=== PATIENT | male | born 1955 | race Caucasian/White ===

== ENCOUNTER 2020-06-11 12:53 | Emergency (ER) | payer MEDICARE ==
[2020-06-11 13:12] VITALS: RESP 18
--- NOTE | 2020-06-11 13:36 | ED ---
General Adult HPI - General Chief complaint: Recheck/Abnormal Lab/Rx Stated complaint: peg tube Time Seen by Provider: 06/11/20 13:26 Source: patient, EMS, RN notes reviewed Mode of arrival: EMS Limitations: no limitations - History of Present Illness Initial comments: this a 65-year-old male presents emergency Department with chief complaint of blocked PEG tube. Patient has a history of cancer with metastasis has a PEG tube and trach. Patient was sent in from outside source for PEG tube replacement. No other complications or complaints - Related Data Allergies Allergy/AdvReac Type Severity Reaction Status Date / Time acetaminophen [From [place]] Allergy Unknown Verified 06/11/20 13:13 bee venom protein (honey bee) Allergy Unknown Verified 06/11/20 13:13 hydrocodone [From [place]] Allergy Unknown Verified 06/11/20 13:13 tramadol Allergy Unknown Verified 06/11/20 13:13 Review of Systems ROS Statement: Those systems with pertinent positive or pertinent negative responses have been documented in the HPI. ROS Other: All systems not noted in ROS Statement are negative. 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 History of Any Multi-Drug Resistant Organisms: None Reported Additional Past Surgical History / Comment(s): trach in place Smoking Status: Former smoker Past Alcohol Use History: Abuse Past Drug Use History: None Reported General Exam General appearance: alert, in no apparent distress Head exam: Present: atraumatic, normocephalic, normal inspection Eye exam: Present: normal appearance, PERRL, EOMI. Absent: scleral icterus, conjunctival injection, periorbital swelling Cardiovascular Exam: Present: regular rate, normal rhythm, normal heart sounds. Absent: systolic murmur, diastolic murmur, rubs, gallop, clicks GI/Abdominal exam: Present: soft, normal bowel sounds, other (PEG tube noted in place). Absent: distended, tenderness, guarding, rebound, rigid Course Vital Signs 06/11/20 12:59 Temperature 98.5 F Pulse Rate 100 Respiratory 18 Rate Blood Pressure 139/100 O2 Sat by Pulse 93 L Oximetry Procedures - Procedures Initial comment: PEG tube was flushed with Pepsi, there is no blockage noted. Medical Decision Making - Medical Decision Making patient presented with a clogged PEG tube this was able to be flushed with pepsi, patient will be discharged in stable condition. Disposition Clinical Impression: PEG tube malfunction Disposition: HOME SELF-CARE Condition: Stable Instructions (If sedation given, give patient instructions): How to Use and Care for Your PEG Tube (ED) Additional Instructions: Please return to the Emergency Department if symptoms worsen or any other concerns. Is patient prescribed a controlled substance at d/c from ED?: No Referrals: None,Stated [Primary Care Provider] - 1-2 days Time of Disposition: 13:36
[2020-06-11 14:55] VITALS: BP 146/89; PULSE 88; TEMP 97.9
== END 2020-06-11 14:54 | disposition home or self-care (01) ==
LOC: EC 12:53
DX: K94.23 Gastrostomy malfunction (principal); Z88.6 Allergy status to analgesic agent; Z91.030 Bee allergy status; Z88.5 Allergy status to narcotic agent; Z87.891 Personal history of nicotine dependence; Z85.118 Personal history of other malignant neoplasm of bronchus and lung; Z85.841 Personal history of malignant neoplasm of brain
CPT/HCPCS: 99283

== ENCOUNTER 2020-06-17 21:28 | Emergency (ER) | payer MEDICARE ==
[2020-06-17 21:55] VITALS: TEMP 100.3
--- NOTE | 2020-06-17 22:01 | XR ---
EXAMINATION TYPE: XR chest 1V portable DATE OF EXAM: 06/17/2020 COMPARISON: 06/26/2013. HISTORY: Shortness of breath and displaced tracheostomy tube. TECHNIQUE: Single frontal view of the chest is obtained. FINDINGS: There is demonstration of a tracheostomy tube with tip overlying the mid intrathoracic tra david. There is a right PICC with obscuration of the distal portion, however appears to tip appears to overlie the caudal SVC. Gastric tube bulb is is noted. There is diffuse moderate patchy opacity in t he right lung, relatively sparing the upper lobe. There is additional moderate left perihilar opacity . The cardiac silhouette size is within normal limits. The osseous structures are otherwise intact. Cervical spine fusion seen. IMPRESSION: Support apparatus as above. Right greater than left airspace opacities.
[2020-06-17] MEDS ORDERED: cefTRIAXone 1,000 MG VIAL (IM USE) IM STA (22:36)
--- NOTE | 2020-06-17 22:44 | ED ---
ENT HPI - General Chief complaint: ENT Stated complaint: trach issue Time Seen by Provider: 06/17/20 21:28 Source: EMS, RN notes reviewed, old records reviewed Mode of arrival: EMS Limitations: physical limitation - History of Present Illness Initial comments: This is a 65-year-old male with a history of metastatic lung cancer to the brain who apparently somehow dislodged his tracheostomy. He was brought in by EMS initially he had a pulse ox of in the 80s on supplemental oxygen was in the 90s. No complaints of fevers chills nausea vomiting sweats or other symptoms. MD complaint: other - Related Data Previous Rx's Medication Instructions Recorded Amoxicillin/Potassium Clav 1 tab PO Q12HR 1 Days #20 tab 06/17/20 [Augmentin 875-125 Tablet] Allergies Allergy/AdvReac Type Severity Reaction Status Date / Time acetaminophen [From [place]] Allergy Unknown Verified 06/17/20 21:38 bee venom protein (honey bee) Allergy Unknown Verified 06/17/20 21:38 hydrocodone [From [place]] Allergy Unknown Verified 06/17/20 21:38 tramadol Allergy Unknown Verified 06/17/20 21:38 Review of Systems ROS Statement: Those systems with pertinent positive or pertinent negative responses have been documented in the HPI. 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 History of Any Multi-Drug Resistant Organisms: None Reported Additional Past Surgical History / Comment(s): trach in place Past Psychological History: No Psychological Hx Reported Smoking Status: Former smoker Past Alcohol Use History: Abuse Past Drug Use History: None Reported General Exam - General Exam Comments Initial Comments: Is a well-developed asthenic appearing male who is awake and alert. The tracheostomy does appear to be dislodged he is maintaining his saturation on supplemental oxygen. Limitations: physical limitation General appearance: alert, anxious Head exam: Present: atraumatic, normocephalic, normal inspection Eye exam: Present: normal appearance, PERRL, EOMI. Absent: scleral icterus, conjunctival injection, periorbital swelling ENT exam: Present: mucous membranes dry Neck exam: Present: normal inspection. Absent: tenderness, meningismus, lymphadenopathy Respiratory exam: Present: normal lung sounds bilaterally. Absent: respiratory distress, wheezes, rales, rhonchi, stridor Cardiovascular Exam: Present: normal rhythm, tachycardia, normal heart sounds. Absent: systolic murmur, diastolic murmur, rubs, gallop, clicks GI/Abdominal exam: Present: soft, normal bowel sounds. Absent: distended, tenderness, guarding, rebound, rigid Extremities exam: Present: normal inspection, full ROM, normal capillary refill. Absent: tenderness, pedal edema, joint swelling, calf tenderness Back exam: Present: normal inspection Neurological exam: Present: alert, oriented X3, CN II-XII intact Psychiatric exam: Present: normal affect, normal mood Skin exam: Present: warm, dry, intact, normal color. Absent: rash Course Vital Signs 06/17/20 06/17/20 21:35 21:49 Temperature 98 F 100.3 F H Pulse Rate 121 H Respiratory 24 Rate Blood Pressure 195/78 O2 Sat by Pulse 97 Oximetry - Reevaluation(s) Reevaluation #1: 06/17/20 22:41 Gastric tube was replaced by respiratory therapy this a #6 uncuffed tube x-ray shows evidence of a right lower lobe consolidation. Medical Decision Making - Medical Decision Making The patient is a hospice patient and after discussion with family they would like patient transferred back home he will be given oral antibiotics and a prescription and a shot of Rocephin prior to discharge. No further workup is to be performed Disposition Clinical Impression: Tracheostomy complication, unspecified, Metastatic primary lung cancer, Pneumonia Disposition: HOME SELF-CARE Condition: Stable Instructions (If sedation given, give patient instructions): Bacterial Pneumonia (ED) Prescriptions: Amoxicillin/Potassium Clav [Augmentin 875-125 Tablet] 1 tab PO Q12HR 1 Days #20 tab Is patient prescribed a controlled substance at d/c from ED?: No Referrals: None,Stated [Primary Care Provider] - 1-2 days
[2020-06-17 23:15] VITALS: BP 112/85; PULSE 120; RESP 18
== END 2020-06-17 23:50 | disposition home or self-care (01) ==
LOC: EC 21:28
DX: J95.00 Unspecified tracheostomy complication (principal); C34.90 Malignant neoplasm of unspecified part of unspecified bronchus or lung; C79.31 Secondary malignant neoplasm of brain; J18.9 Pneumonia, unspecified organism; Z88.5 Allergy status to narcotic agent; Z88.8 Allergy status to other drugs, medicaments and biological substances; Z91.030 Bee allergy status; Z87.891 Personal history of nicotine dependence
CPT/HCPCS: 71045; 99284; 96372; J0696